=== PATIENT | male | born 1985 ===

== ENCOUNTER 2017-11-18 22:04 | Inpatient (IN) | payer MEDICAID ==
[2017-11-19 00:18] LABS: BASO % 0.4 % (0.0-2.0); EOS % 0.3 % (0.0-4.0); HEMOGLOBIN 11.9 g/dL (12.0-18.0); LYMPH # 1.8 K/uL (1.0-4.3); LYMPH % 19.3 % (20.0-40.0); MEAN CELL VOLUME 89.3 fL (80.0-94.0); MEAN CORPUSCULAR HEMOGLOBIN 30.4 pg (27.0-31.0); MEAN PLATELET VOLUME 8.9 fL (7.2-11.7); MONO # 0.5 K/uL (0.0-0.8); MONO % 5.8 % (0.0-10.0); NEUT # 6.8 K/uL (1.8-7.0); NEUT % 74.2 % (50.0-75.0); RBC 3.9 Mil/uL (4.40-5.90); RED CELL DISTRIBUTION WIDTH 13.7 % (11.5-14.5); WHITE BLOOD COUNT 9.1 K/uL (4.8-10.8)
[2017-11-19 00:37] LABS: URINE BILIRUBIN NEGATIVE (NEGATIVE); URINE BLOOD NEGATIVE (NEGATIVE); URINE CLARITY Hazy (Clear); URINE COLOR Yellow (YELLOW); URINE GLUCOSE (UA) NORMAL (Normal); URINE LEUKOCYTE ESTERASE NEG Leu/uL (Negative); URINE PROTEIN NEGATIVE (NEGATIVE); URINE UROBILINOGEN NORMAL mg/dL (0.2-1.0)
[2017-11-19 00:38] LABS: ALB/GLOB RATIO 1.4 (1.0-2.1); ALBUMIN 4.1 g/dL (3.5-5.0); ALT/SGPT 15 U/L (21-72); AST/SGOT 16 U/L (17-59); BLOOD UREA NITROGEN 14 mg/dL (9-20); CALCIUM 8.9 mg/dl (8.6-10.4); GFR AFRICAN-AMERICAN > 60; GFR NON-AFRICAN AMERICAN > 60
[2017-11-19 00:58] LABS: BARBITURATES, UR NEGATIVE (NEGATIVE); PHENCYCLIDINE, UR NEGATIVE (NEGATIVE)
[2017-11-19 01:32] LABS: BENZODIAZEPINES, UR POSITIVE (NEGATIVE)
[2017-11-19 01:33] LABS: OPIATES, UR POSITIVE (NEGATIVE)
--- NOTE | 2017-11-19 02:39 | C.PDOC ---
History Of Present Illness 32 y/o male presented to ED for detox of opiates. Patient was pre-screened, last use was 1 hour MESH MAN. Patient denies any suicidal or homicidal ideation and offers no other medical complaints. Time Seen by Provider: 11/18/17 23:02 Chief Complaint (Nursing): Substance Abuse History Per: Patient History/Exam Limitations: no limitations Onset/Duration Of Symptoms: Days Current Symptoms Are (Timing): Still Present Suicide/Self Injury Attempted (Context): None Modifying Factor(s): Other (opiates) Associated Symptoms: denies: Suicidal Thoughts, Suicidal Plan Past Medical History Reviewed: Historical Data, Nursing Documentation, Vital Signs Vital Signs: Last Vital Signs Temp 98.6 F 11/18/17 22:52 Pulse 123 H 11/18/17 22:52 Resp 16 11/18/17 22:52 BP 118/81 11/18/17 22:52 Pulse Ox 96 11/19/17 03:18 - Medical History PMH: Denies: Diabetes, Hepatitis, HIV, HTN, Seizures, Sexually Transmitted Disease Surgical History: No Surg Hx Family History: States: No Known Family Hx - Social History Hx Alcohol Use: Yes Hx Substance Use: Yes Review Of Systems Constitutional: Negative for: Fever, Chills Cardiovascular: Negative for: Chest Pain, Palpitations Respiratory: Negative for: Shortness of Breath Gastrointestinal: Negative for: Nausea, Vomiting Psych: Negative for: Suicidal ideation Physical Exam - Physical Exam Appears: Non-toxic Skin: Normal Color, Warm, Dry Head: Atraumatic, Normacephalic Eye(s): bilateral: Normal Inspection Chest: Symmetrical Cardiovascular: Rhythm Regular (tachycardic) Respiratory: Normal Breath Sounds, No Rales, No Rhonchi, No Wheezing Neurological/Psych: Oriented x3, Normal Speech Gait: Steady ED Course And Treatment - Laboratory Results Result Diagrams: 11/19/17 00:02 11/19/17 00:02 O2 Sat by Pulse Oximetry: 96 (RA) Pulse Ox Interpretation: Normal Progress Note: Labs and urinalysis ordered. Pt is medically cleared for crisis eval. Patient was evaluated by the crisis counselor. Patient accepted into detox unit by Dr. Patino. Reassessment Condition: Improved Disposition Counseled Patient/Family Regarding: Diagnosis, Need For Followup - Disposition Disposition: HOSPITALIZED Disposition Time: 04:05 Condition: STABLE Forms: [facility] (Slovenian) - Clinical Impression Clinical Impression: Opioid use disorder, severe, dependence, Drug dependence - PA / EARLY CHILDHOOD DIRECTOR / Resident Statement MD/DO has reviewed & agrees with the documentation as recorded. - Scribe Statement The provider has reviewed the documentation as recorded by the Scribe Jon Kirkpatrick All medical record entries made by the Radha were at my direction and personally dictated by me. I have reviewed the chart and agree that the record accurately reflects my personal performance of the history, physical exam, medical decision making, and the department course for this patient. I have also personally directed, reviewed, and agree with the discharge instructions and disposition.
[2017-11-19 05:51] VITALS: RESP 18
[2017-11-19] MEDS ORDERED: Aluminum Hydroxide/Magnesium Hydroxide Susp (30 mL) PO PRN (08:56)
--- NOTE | 2017-11-19 14:34 | PCM.PSYCH ---
Initial Psychiatric Evaluation - Initial Psychiatric Evaluation Type of Admission: Voluntary Legal Status: Capacity Chief Complaint (in patient's own words): "i am getting very sick" History of Present Illness and Precipitating Events: The pt is seen, chart reviewed and case discussed. He is a 32 y/o WM, but , going through divorce, no child, no job He is here for heroin detox: using more than 20-30 bags, iv daily for many years. He also uses cocaine by snorting, 6-12 mg of xanax or klonopin daily, alcohol 1-2 drinks daily and smokes more than 1 ppd. He denies other drugs. He has OD'ed in the past, arrested many times, broken up his marriage and many other issues He also had possible seizures from benzo wdw Pt was in detox and rehab more than 5 times He suffers from depression and anxiety "a lot." He doesn't remember the meds, except for klonopin, but he was once admitted at [facility] Currently, he describes anxiety, depressed mood, irritability and anhedonia but denies SI, HI, AVH/del. He was a very poor historian, and refused to come out of bed initially Past psych hx: As above Medical hx: Denies Family psych hx: He doesn't know, adopted at . Current Medications: Active Medications Generic Name Dose Route Start Last Admin Trade Name Freq PRN Reason Stop Dose Admin Al Hydrox/Mg Hydrox/Simethicone 30 ml 11/19/17 08:56 Maalox 30 Ml PO TID PRN Indigestion / Heartburn Clonidine HCl 0.1 mg 11/19/17 08:56 Catapres PO Q8 PRN COWS Score More or Equal to 5 Gabapentin 300 mg 11/19/17 10:00 11/19/17 10:15 Neurontin PO Not Given BID DON Hydroxyzine HCl 50 mg 11/19/17 08:56 Atarax PO Q6H PRN Anxiety Ibuprofen 600 mg 11/19/17 08:56 Motrin Tab PO Q6H PRN Pain, moderate (4-7) Loperamide HCl 2 mg 11/19/17 08:56 Imodium PO Q8 PRN Diarrhea Lorazepam 1 mg 11/19/17 08:56 Ativan PO Q8H PRN Agitation Ondansetron HCl 4 mg 11/19/17 08:56 Zofran Tab PO Q8 PRN Nausea/Vomiting Trazodone HCl 100 mg 11/19/17 08:56 Desyrel PO HS PRN Insomnia Past Psychiatric History - Past Psychiatric History Previous Treatment History: Intensive Outpatient Pertinent Medical Hx (Current Medical&Sleep Prob, Allergies): Allergies Allergy/AdvReac Type Severity Reaction Status Date / Time haloperidol [From Haldol] Allergy Verified 11/18/17 22:56 peanut Allergy Verified 11/18/17 22:56 No Known Home Med 11/18/17 Review of Systems - Neurological Neurological: UNREMARKABLE - Psychiatric Psychiatric: Abnormal Sleep Pattern, Anhedonia, Anxiety, Change in Appetite, Depression, Difficulty Concentrating, Irritability. absent: Hallucinations, Homicidal Ideation, Paranoia, Suicidal Ideation Mental Status Examination - Personal Presentation Personal Presentation: Looks stated age - Affect Affect: Constricted - Motor Activity Motor Activity: Calm - Reliability in Providing Information Reliability in Providing Information: Fair - Speech Speech: Organized - Mood Mood: Depressed, Anxious - Formal Thought Process Formal Thought Process: No Impairment - Cognitive Functions Orientation: Person, Place, Situation, Time Sensorium: Drowsy Attention/Concentration: Easily distracted Estimate of Intelligence: Average Judgement: Intact, as evidence by: Insight regarding need for hospitalization Memory: Recent intact, as evidence by: Ability to recall events of the day, Remote intact, as evidenced by: Abilit to recall sig. 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 Attend groups and activities Supportive therapy and psychoeducation [place] for abstinence CBT for relapse prevention Encourage MAT Refer to rehab or IOP, and self-help groups Smoking cessation with [place] Nicotine patch if needed 34 min Projected ELOS: 4-5 days Prognosis: good w treatment - Smoking Cessation Smoking Cessation Initiated: Yes
[2017-11-20 13:59] VITALS: BP 109/75; PULSE 80; TEMP 97.5; O2SAT 100
--- NOTE | 2017-11-20 16:41 | PCM.PYCHDC ---
Mental Status Examination - Mental Status Examination Orientation: Person Discharge Summary - Discharge Note Consultations:: List each consultation separately and include: 1. Reason for request. 2. Findings. 3. Follow-up Summary of Hospital Course include:: 1. Description of specific treatment plan utilized for patients during their course of treatmen. 2. Summarize the time- course for resolution of acute symptoms and/or regressed behaviors. 3. Describe issues identified and worked on during hospitalization. 4. Describe medication utilized. 5. Describe medical problems identified and treated. 6. Reassessment of suicide risk Summary of Hospital Course: The pt is seen, chart reviewed and case discussed. He is a 32 y/o WM, but , going through divorce, no child, no job He is here for heroin detox: using more than 20-30 bags, iv daily for many years. He also uses cocaine by snorting, 6-12 mg of xanax or klonopin daily, alcohol 1-2 drinks daily and smokes more than 1 ppd. He denies other drugs. He has OD'ed in the past, arrested many times, broken up his marriage and many other issues He also had possible seizures from benzo wdw Pt was in detox and rehab more than 5 times He suffers from depression and anxiety "a lot." He doesn't remember the meds, except for klonopin, but he was once admitted at [facility] Currently, he describes anxiety, depressed mood, irritability and anhedonia but denies SI, HI, AVH/del. He was a very poor historian, and refused to come out of bed initially Past psych hx: As above Medical hx: Denies Family psych hx: He doesn't know, adopted at . - Final Diagnosis (DSM 5) Condition upon Discharge: STABLE Disposition: AGAINST MEDICAL ADVICE Follow-up Treatment Plan: Taper with methadone and librium Gabapentin for augmentation Seroquel and remeron for depression and irritability As needed medications All risks, benefits and alternatives of the meds discussed, and the pt agreed and understood. Attend groups and activities Supportive therapy and psychoeducation [place] for abstinence CBT for relapse prevention Encourage MAT Refer to rehab or IOP, and self-help groups Smoking cessation with [place] Nicotine patch if needed 34 min
== END 2017-11-20 14:41 | disposition left against medical advice (07) | DRG 743 ==
LOC: C.ER 22:04 → C.7D 11-19 04:03
PROVIDERS: ADMIT Psychiatry & Neurology Psychiatry; ATTEND Psychiatry & Neurology Psychiatry
PROC: HZ2ZZZZ Detoxification Services for Substance Abuse Treatment (ICD-10-PCS; principal; 2017-11-19)
PROC: HZ59ZZZ Individual Psychotherapy for Substance Abuse Treatment, Supportive (ICD-10-PCS; 2017-11-19)
PROC: GZ3ZZZZ Medication Management (ICD-10-PCS; 2017-11-19)
PROC: HZ46ZZZ Group Counseling for Substance Abuse Treatment, Psychoeducation (ICD-10-PCS; 2017-11-19)
PROC: HZ80ZZZ Medication Management for Substance Abuse Treatment, Nicotine Replacement (ICD-10-PCS; 2017-11-19)
DX: F11.23 Opioid dependence with withdrawal (principal); F13.239 Sedative, hypnotic or anxiolytic dependence with withdrawal, unspecified; F14.90 Cocaine use, unspecified, uncomplicated; F32.9 Major depressive disorder, single episode, unspecified; F41.1 Generalized anxiety disorder; F17.210 Nicotine dependence, cigarettes, uncomplicated